=== PATIENT | female | born 1965 | race Caucasian/White ===

== ENCOUNTER → 2018-03-10 10:14 | Outpatient (CLI) | payer OTHER, MEDICAID, SELFPAY ==
--- NOTE | 2018-03-10 10:17 | DI.RAD.S_ITS ---
PROCEDURE: XR FINGER LT MIN 2V INDICATIONS: thumb arthritis TECHNIQUE: AP hand, 2 views of the first finger(s) acquired. COMPARISON: [facility], [place], XR FINGER RT MIN 2V, 03/10/2018, 10:03. [facility], [place], FINGER LT, 05/27/2016, 10:01. FINDINGS: Bones: No fractures or dislocations. No suspicious bony lesions. There is a mild degree of degenerative osteoarthritic change at the base of the first metacarpal Soft tissues: No suspicious soft tissue calcifications. 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 No significant degenerative change or prior trauma seen at the first distal and proximal phalanx. Dictated by: Yang Garcia M.D. on 03/10/2018 at 13:14 Approved by: Yang Garcia M.D. on 03/10/2018 at 13:15
--- NOTE | 2018-03-10 10:17 | DI.RAD.S_ITS ---
PROCEDURE: XR FINGER RT MIN 2V INDICATIONS: thumb arthritis TECHNIQUE: AP hand, 2 views of the first finger(s) acquired. COMPARISON: [facility], [place], FINGER LT, 05/27/2016, 10:01. FINDINGS: Bones: No fractures or dislocations. No suspicious bony lesions. Soft tissues: No suspicious soft tissue calcifications. IMPRESSION: Mild degenerative osteoarthritic change at the base of the first metacarpal, no trauma found. Dictated by: Yang Garcia M.D. on 03/10/2018 at 13:15 Approved by: Yang Garcia M.D. on 03/10/2018 at 13:16
== END ==
PROVIDERS: Family Provider Physician Assistant; PCP Physician Assistant; Visit Provider Physician Assistant
DX: M19.042 Primary osteoarthritis, left hand (principal)
CPT/HCPCS: 73140

== ENCOUNTER → 2019-05-01 09:22 | Outpatient (CLI) | payer OTHER, MEDICAID, SELFPAY ==
--- NOTE | 2019-05-01 09:27 | DI.RAD.S_ITS ---
PROCEDURE: XR HIP W PEL IF DONE LT 2V INDICATIONS: L hip pain x 3 months. Hx of ovarian borderline ca L ovary TECHNIQUE: 2 views of the hip were acquired. COMPARISON: None. FINDINGS: Bones: No fractures or dislocations. No suspicious bony lesions. The visualized pelvic ring appears intact. Minimal degenerative change. Soft tissues: No suspicious soft tissue calcifications or masses. IMPRESSION: Minimal degenerative change. If clinical concern with pain persist, additional imaging with CT or MRI is recommended. Dictated by: Sheela Guzmán M.D. on 05/01/2019 at 10:03 Approved by: Sheela Guzmán M.D. on 05/01/2019 at 10:04
== END ==
PROVIDERS: PCP Physician Assistant; Visit Provider Physician Assistant
DX: N39.0 Urinary tract infection, site not specified (principal); R35.0 Frequency of micturition; R39.15 Urgency of urination; M25.552 Pain in left hip
CPT/HCPCS: 73502; 87077; 87086; 87186

== ENCOUNTER → 2019-05-02 08:38 | Outpatient (CLI) | payer OTHER, MEDICAID, SELFPAY ==
[2019-05-02 09:19] LABS: Alanine Aminotransferase 16 IU/L (9-52); Albumin 3.5 g/dL (3.5-5.0); Albumin Globulin Ratio 1.3 (1.0-2.8); Alkaline Phosphatase 57 U/L (38-126); Aspartate Aminotransferase 21 IU/L (14-36); BUN Creatinine Ratio 17.8 (6-22); Bilirubin Total 0.3 mg/dL (0.2-1.3); Blood Urea Nitrogen 16 mg/dL (7-17); Calcium 8.4 mg/dL (8.4-10.2); Carbon Dioxide 29 mmol/L (22-32); Chloride 105 mmol/L (98-107); Cholesterol 126 mg/dL (140-199); Estimated Glomerular Filt Rate > 60.0 mL/min (>60); Globulin 2.6 g/dL (1.7-4.1); Glucose 122 mg/dL (70-100); HDL Cholesterol 55 mg/dL (40-60); HEMOLYSIS < 15 (0-50); LDL Cholesterol Calculated 53 mg/dL (<100); Potassium 3.8 mmol/L (3.4-5.1); Sodium 140 mmol/L (137-145); Total Protein 6.1 g/dL (6.3-8.2); Triglycerides 89 mg/dL (35-150)
== END ==
PROVIDERS: PCP Physician Assistant; Visit Provider Physician Assistant
DX: N39.0 Urinary tract infection, site not specified (principal); Z13.1 Encounter for screening for diabetes mellitus; Z13.220 Encounter for screening for lipoid disorders; Z13.6 Encounter for screening for cardiovascular disorders
CPT/HCPCS: 36415; 80053; 80061

== ENCOUNTER 2019-07-06 08:45 | Emergency (ER) | payer OTHER, MEDICAID, SELFPAY ==
[2019-07-06 09:27] VITALS: BP 128/91; PULSE 78; RESP 20; TEMP 36.7; O2SAT 100
--- NOTE | 2019-07-06 10:39 | PC.NURSE ---
Had I&D in group home. Here for evaluation of abscess
[2019-07-06] MEDS: KETOROLAC 60 MG/2 ML VIAL IM (12:00)
--- NOTE | 2019-07-06 12:06 | ED_ITS ---
HPI - Skin/Abscess/Foreign Bdy <BRIT Harrison - Last Filed: 07/06/19 15:39> General Chief complaint: Skin/Abscess/Foreign Body Stated complaint: Sore on neck Time Seen by Provider: 07/06/19 11:07 Source: patient and family Mode of arrival: Ambulatory Limitations: no limitations History of Present Illness HPI narrative: The patient is a 53-year-old female current smoker who presents for an evaluation of an abscess. She states that she has had an abscess on the back of her neck, on the left side. She had a I and D in halfway. She was started on an antibiotic, she was initially unsure what it was however she called the halfway and found out she was placed on Bactrim. She states she has taken 2 doses of Bactrim. She denies any fevers nausea vomiting or diarrhea. She states she wanted somebody else to take a look at it given that she had it drained in halfway. 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 She states she has been using Tylenol and putting warm packs on it. Related Data Previous Rx's Medication Instructions Recorded cephalexin 500 mg PO QID #40 cap 07/06/19 Allergies Allergy/AdvReac Type Severity Reaction Status Date / Time No Known Allergies Allergy Uncoded 05/01/19 08:44 Review of Systems <BRIT Harrison - Last Filed: 07/06/19 15:39> Review of Systems Narrative: GENERAL: Denies chills, fatigue, malaise, fever, sweats. HEENT: Denies sinus pain, ear pain, sore throat, difficulty swallowing, dizziness. RESPIRATORY: Denies dyspnea, cough, wheezing, hemoptysis, sputum. CARDIOVASCULAR: Denies chest pain, palpitations, orthopnea, edema, GASTROINTESTINAL: Denies nausea, vomiting, abdominal pain, diarrhea, constipation, melena. : Denies dysuria, frequency, incontinence, hematuria, urinary retention. MUSCULOSKELETAL: denies weakness, joint pain, or bony pain SKIN: See HPI NEUROLOGIC: Denies weakness, headache, numbness, change in speech, confusion, seizures, incoordination. PSYCHIATRIC: No concerning psychosocial issues. 12 point review of systems is negative except for those stated above PFSH <BRIT Harrison - Last Filed: 07/06/19 15:39> Medical History Mucinous cystadenoma (Acute ~10/2017) Surgical History Hx of appendectomy (Acute 1979) Status post hysterectomy with oophorectomy (09/13/17) Status post ovarian cystectomy (09/13/17) Social History Smoking Status: Current some day smoker Tobacco: How many years used: 40 second hand exposure: No alcohol intake: current (mixed drink probably twice a week.) substance use type: marijuana Social History Smoking Status: Current some day smoker Tobacco: How many years used: 40 second hand exposure: No alcohol intake: current (mixed drink probably twice a week.) substance use type: marijuana Exam <BRIT Harrison - Last Filed: 07/06/19 15:39> Narrative Exam Narrative: GENERAL: Thin female in no acute distress HEAD: Atraumatic. Normocephalic. No temporal or scalp tenderness. EYES: Pupils equal round and reactive. Extraocular motions intact. No scleral icterus. No injection or drainage. ENT: Nose without bleeding, purulent drainage or septal hematoma. Throat without erythema, tonsillar hypertrophy or exudate. Uvula midline. Airway patent. NECK: Trachea midline. No JVD or lymphadenopathy. Supple, nontender, no meningeal signs. CARDIOVASCULAR: Regular rate and rhythm without murmurs, gallops, or rubs. RESPIRATORY: Clear to auscultation. Breath sounds equal bilaterally. No wheezes, rales, or rhonchi. No cough. No increased respiratory effort. No accessory muscle use. GASTROINTESTINAL: Abdomen soft, non-tender, nondistended. No hepato- splenomegaly, or palpable masses. No guarding. Active bowel sounds all 4 quadrants. EXTREMITIES: No clubbing, cyanosis, or edema. No joint tenderness, effusion, or edema noted. BACK: Nontender without deformity or crepitance. No flank tenderness. NEURO: AOx3. SKIN: Recently I &Dd abscess noted on left side of posterior neck. 2 cm surrounding erythema. Serosanguineous drainage noted. Culture obtained. No palpable fluctuance at this point time. Initial Vital Signs Initial Vital Signs: Vital Signs Temperature 98.0 F 07/06/19 09:27 Pulse Rate 78 07/06/19 09:27 Respiratory Rate 20 07/06/19 09:27 Blood Pressure 128/91 H 07/06/19 09:27 Pulse Oximetry 100 07/06/19 09:27 <Marissa Hill MD - Last Filed: 07/06/19 19:42> Initial Vital Signs Initial Vital Signs: Vital Signs Temperature 98.0 F 07/06/19 09:27 Pulse Rate 78 07/06/19 09:27 Respiratory Rate 20 07/06/19 09:27 Blood Pressure 128/91 H 07/06/19 09:27 Pulse Oximetry 100 07/06/19 09:27 Course <BRIT Harrison - Last Filed: 07/06/19 15:39> Orders Ordered: ED Orders 07/06/19 11:50 Wound Culture and Gram Stain Stat Discontinued Medications Ketorolac Tromethamine (Toradol) 60 mg IM NOW ONE Stop: 07/06/19 11:22 Last Admin: 07/06/19 12:00 Dose: 60 mg Documented by: ELVIE Vital Signs Vital signs: Vital Signs - 8 hr 07/06/19 12:28 Pulse Rate 72 Respiratory Rate 20 Blood Pressure 140/93 H Pulse Oximetry 98 <Marissa Hill MD - Last Filed: 07/06/19 19:42> Orders Ordered: ED Orders 07/06/19 11:50 Wound Culture and Gram Stain Stat Discontinued Medications Ketorolac Tromethamine (Toradol) 60 mg IM NOW ONE Stop: 07/06/19 11:22 Last Admin: 07/06/19 12:00 Dose: 60 mg Documented by: JPOMAYRA Vital Signs Vital signs: Vital Signs - 8 hr 07/06/19 12:28 Pulse Rate 72 Respiratory Rate 20 Blood Pressure 140/93 H Pulse Oximetry 98 MDM - Skin/Abscess/Foreign Bdy <BRIT Harrison - Last Filed: 07/06/19 15:39> MDM Narrative Medical decision making narrative: The patient is a 53-year-old female who presents for an evaluation of an abscess. She denies any systemic symptoms and is afebrile in the emergency department. She is nontoxic and well-appearing. She has no palpable fluctuance on exam. I believe Bactrim is an appropriate choice of antibiotic for her, though I will add Keflex in order to expand coverage. I discussed at length monitoring for signs and symptoms of systemic infection including fever, vomiting, diarrhea. Encourage PCP follow-up for recheck in a few days. Encouraged warm packs. Wound cultures pending at this time. Patient states understanding and has no questions or concerns upon discharge. Discharge Plan Departure Patient Disposition: Home Clinical Impression: Abscess of skin or subcutaneous tissue Qualifiers: Site of cutaneous abscess: neck Qualified Code(s): L02.11 - Cutaneous abscess of neck Discharge Date/Time: 07/06/19 12:29 Instructions: DI for Incision and Drainage of a Skin Abscess, DI for Skin Abscess Activity Restrictions/Additional Instructions: Thank you for trusting us with your care today. I have added a 2nd antibiotic to expand your coverage. Please take both antibiotics. Please monitor for signs of systemic infection such as fever, vomiting, diarrhea. Please be evaluated if these occur. I suggest continued [id number] medications as needed and able. Please follow up with primary care provider in a few days. Prescriptions: New cephalexin 500 mg capsule 500 mg PO QID Qty: 40 RF: 0 Referrals: Danitza Galan PA-C [Primary Care Provider] -
[2019-07-06 12:28] VITALS: BP 140/93; PULSE 72; RESP 20; O2SAT 98
== END 2019-07-06 12:29 | disposition home or self-care (01) ==
PROVIDERS: Emergency Provider Nurse Practitioner Family; PCP Physician Assistant
DX: L02.11 Cutaneous abscess of neck (principal)
CPT/HCPCS: 87070; 87077; 87147; 87186; 87205; 96372; 99282; 99283; J1885

== ENCOUNTER 2019-07-24 06:37 | Day surgery (SDC) | payer OTHER, MEDICAID, SELFPAY ==
[2019-07-24] VITALS (8 sets, daily range): BP systolic 138–170; BP diastolic 80–95; PULSE 54–79; RESP 12–16; TEMP 35.9–36.3; O2SAT 97–100; BMI 23.8
[2019-07-24] MEDS: SODIUM CHLORIDE 0.9% 1,000 ML 200 ML IV (07:31)
--- NOTE | 2019-07-24 07:43 | PM.HP.1 ---
History of Present Illness History of Present Illness Date Patient Seen: 07/24/19 Time Patient Seen: 07:43 Chief complaint: [address] SCREENING COLONOSCOPY Narrative: Patient presents for colorectal screening. They have never had any previous examination for such. On further history denies any recent gastrointestinal symptoms. No nausea, vomiting, abdominal pain, loss of appetite, unexplained weight loss, change in bowel habits, diarrhea, constipation, melena, hematochezia, or bright red blood per rectum. Patient History Medical History MRSA (methicillin resistant Staphylococcus aureus) (Acute) Mucinous cystadenoma (Acute ~10/2017) Surgical History Hx of appendectomy (Acute 1979) Status post hysterectomy with oophorectomy (09/13/17) Status post ovarian cystectomy (09/13/17) Social History (Reviewed 07/06/19 @ 12:07 by Debbie Mathews [facility]) Smoking Status: Current some day smoker Tobacco: How many years used: 40 second hand exposure: No alcohol intake: current (mixed drink probably twice a week.) substance use type: marijuana Family & Social History Tobacco & Substance use: Smoking Status Current some day smoker alcohol intake current alcohol intake frequency 3 or more drinks per day Substance Use Type former substance user,marijuana Meds Home Medications and Allergies Home Medications Medication Instructions Recorded Confirmed Type cephalexin 500 mg PO QID #40 cap 07/06/19 07/24/19 Rx Allergies Allergy/AdvReac Type Severity Reaction Status Date / Time No Known Drug Allergies Allergy Verified 07/24/19 07:24 Review of Systems Review of Systems ROS Unobtainable: All systems reviewed & are unremarkable except as noted in HPI and below Exam Vital Signs (past 8 hours): - 07/24/19 07:25 Temperature 96.7 F L Pulse Rate 67 Respiratory Rate 16 Blood Pressure 170/95 H Pulse Oximetry 97 Oxygen Delivery Method Room Air Narrative Exam Narrative: General-no acute distress, well nourished HEENT-moist mucous membranes, no scleral icterus Neck-supple, no lymphadenopathy Chest- non labored respirations, clear to auscultation bilaterally Cardiac-regular rate no peripheral edema Abdomen-soft, nontender, non distended Extremities-warm, well perfused Neurological-alert and oriented, no focal deficits Assessment & Plan Assessment and plan (1) Screening for colon cancer: Current visit: Yes Status: Acute Assessment & Plan narrative: Patient is requiring colorectal screening. Colonoscopy is recommended. Technical details were discussed. Risks, benefits, alternatives explained. Risks including but not limited to sedation, aspiration, bleeding, pain, missed lesion, incomplete examination, need for further radiographic studies, colonic perforation, need for major abdominal surgery, and all attendant risks major surgery were discussed at length. All questions were answered to their satisfaction, and they voiced understanding.
--- NOTE | 2019-07-24 08:31 | PM.OP.ENDO ---
Operative Date/Time/Diagnoses Date of procedure: 07/24/19 Time of procedure: 08:31 Pre-op diagnosis: screening colonoscopy Post-op diagnosis: same Procedure & Clinicians Study performed: colonoscopy Same procedure as scheduled: Yes Indications: 53 y.o female with no prior colonoscopy presents for screening. Surgeon: Clemente March Procedure Notes SCOAP/Timeout: performed Procedure in detail: Patient placed in left lateral decubitus position. Time out was performed. Procedural sedation was administered for 9 mg Versed, 250 mcg Fentanly total. A rectal exam demonstrated no external hemorrhoids no internal masses. Colonoscopy scope was placed into the rectum and advanced through the colon to the cecum. The ileocecal valve was identified. Scope was then carefully withdrawn examining colon during the withdrawal in all directions. A polyp at 55 cm from the anal verge was identified, less than 1 cm in diameter and benign appearance was identified and excised with electrocautery. The site was observed to be hemostatic. Multiple attempts were made to retrieve the polyp but we were unable to do so. The remainder of colonoscopy was normal, there were no further masses polyps or diverticulosis. Scope was retroflexed within the rectum demonstrated grade 1 internal hemorrhoids. The rectum was desufflated and the scope removed. Patient tolerated procedure well. Scope withdrawal time: 9 Sedation minutes: 33 Findings: polyp (50 cm) Specimen(s): none sent Impression: adenomatous polyp Post-procedure Recommendations: Colonscopy in 5 years Disposition: same day surgery
[2019-07-24] MEDS: MIDAZOLAM 5 MG/5 ML VIAL IV (08:34)
[2019-07-24] MEDS: fentaNYL 250 MCG/5 ML INJ IV (08:35)
== END 2019-07-24 08:34 | disposition home or self-care (01) ==
PROVIDERS: PCP Physician Assistant; Visit Provider Surgery
PROC: 0DJD8ZZ Inspection of Lower Intestinal Tract, Via Natural or Artificial Opening Endoscopic (ICD-10-PCS; CPT 45378; principal; 2019-07-24 08:30)
DX: Z12.11 Encounter for screening for malignant neoplasm of colon (principal); F17.210 Nicotine dependence, cigarettes, uncomplicated; K64.0 First degree hemorrhoids
CPT/HCPCS: 45380; 99152; 99153; J2250; J3010

== ENCOUNTER → 2020-06-01 13:45 | Outpatient (CLI) | payer OTHER, SELFPAY ==
[2020-06-01 18:28] LABS: Urine N gonorrhoeae DETECTED
[2020-06-01 18:30] LABS: Urine Chlamydia NOT DETECTED
[2020-06-02 11:36] LABS: RPR Screen Non Reactive (Non Reactive)
[2020-06-03 15:18] LABS: Hepatitis B Surface Antigen NEGATIVE s/c (NEGATIVE)
[2020-06-03 15:46] LABS: HIV 1 & 2 Ab/Ag 4th Gen Combo NEGATIVE (NEGATIVE); Hep C Virus Ab w/Reflex Quant NEGATIVE s/c (NEGATIVE)
== END ==
PROVIDERS: PCP Physician Assistant; Referring Provider Physician Assistant; Visit Provider Physician Assistant
DX: Z11.3 Encounter for screening for infections with a predominantly sexual mode of transmission (principal)
CPT/HCPCS: 36415; 86592; 86803; 87210; 87340; 87389; 87491; 87591

== ENCOUNTER 2020-06-13 15:25 | Observation (INO) | payer OTHER, MEDICAID, SELFPAY ==
[2020-06-13] VITALS (20 sets, daily range): BP systolic 117–148; BP diastolic 73–98; PULSE 75–149; RESP 11–32; TEMP 36.3–36.6; O2SAT 97–100; BMI 23.6
--- NOTE | 2020-06-13 15:36 | ED_ITS ---
HPI - Arrhythmia/Palpitations General Chief Complaint: Arrhythmia/Palpitations Stated Complaint: abnormal EKG Time Seen by Provider: 06/13/20 15:32 Source: patient Mode of arrival: Wheelchair Limitations: no limitations History of Present Illness HPI narrative: Patient is a 54-year-old female who presents with new onset tachycardia. She was establishing care with a new primary care provider when they saw that her heart rate was in the 140s. She is completely asymptomatic she has no idea that a is going so fast. She has no heart palpitations chest pain shortness of breath. Her mother had a heart attack last week and she decided it was time that she see a provider. She was quickly sent to the ED for evaluation. She denies any fluttering or palpitations in her chest. She is noted to be in AFib with RVR on the monitor Related Data Home Medications Medication Instructions Recorded Confirmed No Known Home Medications 06/13/20 06/13/20 Allergies Allergy/AdvReac Type Severity Reaction Status Date / Time No Known Drug Allergies Allergy Verified 06/13/20 15:32 Review of Systems Review of Systems Narrative: GENERAL: Denies chills, fatigue, malaise, fever, sweats, travel HEENT: Denies sinus pain, ear pain, sore throat, difficulty swallowing, neck pain RESPIRATORY: Denies dyspnea, cough, wheezing, hemoptysis, sputum. CARDIOVASCULAR: Denies chest pain, palpitations, orthopnea, edema GASTROINTESTINAL: Denies nausea, vomiting, abdominal pain, diarrhea, constipation, melena. : Denies dysuria, frequency, incontinence, hematuria, urinary retention, flank pain. MUSCULOSKELETAL: Denies weakness, joint pain, or bony pain SKIN: No rash, no erythema, no pruritus NEUROLOGIC: Denies weakness, dizziness, headache, numbness, change in speech, confusion PSYCHIATRIC: No concerning psychosocial issues. 12 point review of systems is negative except for those stated above and HPI Patient History Medical History MRSA (methicillin resistant Staphylococcus aureus) (Acute) Mucinous cystadenoma (Acute ~10/2017) Surgical History Hx of appendectomy (Acute 1979) Status post hysterectomy with oophorectomy (09/13/17) Status post ovarian cystectomy (09/13/17) Social History household members: friend(s) Smoking Status: Former smoker Tobacco: How many years used: 40 second hand exposure: No alcohol intake: current substance use type: marijuana Smoking Status: Current some day smoker alcohol intake frequency: 3 or more drinks per day Substance Use Type: former substance user and marijuana Exam Initial Vital Signs Initial Vital Signs: Vital Signs Temperature 97.7 F 06/13/20 15:32 Pulse Rate 145 H 06/13/20 15:32 Respiratory Rate 25 H 06/13/20 15:32 Blood Pressure 148/90 H 06/13/20 15:32 Pulse Oximetry 98 06/13/20 15:32 GENERAL: Well-appearing, well-nourished and in no acute distress. HEENT: Head atraumatic,EOMI, pupils reactive, face symmetric, moist mucous membranes CARDIOVASCULAR: Irregular tachycardic RESPIRATORY: Breath sounds equal bilaterally, no wheezes rales or rhonchi. ABDOMEN: Soft, nontender. Normoactive bowel sounds all 4 quadrants. No guarding or rebound. : No CVA tenderness EXTREMITIES: Normal range of motion, no clubbing or edema. Neurovascularly intact NEUROLOGICAL: Alert and oriented x4.Normal gait and speech. SKIN: Warm, dry, no laceration, no petechiae, no rashes or lesions. Course Orders Ordered: ED Orders 06/13/20 15:27 EKG-12 Lead Routine 06/13/20 15:43 XR chest 1V Stat 06/13/20 15:48 Complete Blood Count AUTO DIFF Stat Comprehensive Metabolic Panel Stat Magnesium Stat NT-proBNP (BNP-Adult 18+) Stat Partial Thromboplastin Time Stat Prothrombin Time INR Stat Thyroid Stimulating Hormone Stat Troponin & CK Cardiac Panel Stat 06/13/20 16:08 EKG-12 Lead Routine Sodium Chloride (Normal Saline 0.9%) 1,000 mls @ 150 mls/hr IV CONT KYLE Last Infusion: 06/13/20 17:13 Dose: 0 mls/hr Documented by: Admin: 06/13/20 15:56 Dose: 150 mls/hr Documented by: LAQUITA DILTIAZEM (Diltiazem 125 Mg/125 [id number]) 125 mg in 125 mls @ 5 mls/hr IV TITRATE KYLE; Protocol Last Titration: 06/13/20 18:39 Dose: 10 mg/hr, 10 mls/hr Documented by: Admin: 06/13/20 16:59 Dose: 5 mg/hr, 5 mls/hr Documented by: LAQUITA Discontinued Medications Adenosine (Adenocard) 6 mg IV NOW ONE Stop: 06/13/20 15:44 Last Admin: 06/13/20 16:56 Dose: Not Given Documented by: LAQUITA Diltiazem HCl (Cardizem) 10 mg IV NOW ONE Stop: 06/13/20 15:45 Last Admin: 06/13/20 15:52 Dose: 10 mg Documented by: LAQUITA Vital Signs Vital signs: Vital Signs - 8 hr 06/13/20 15:32 06/13/20 15:41 06/13/20 15:52 Temperature 97.7 F Pulse Rate 145 H 149 H 148 H Respiratory Rate 25 H 32 H Blood Pressure 148/90 H 148/90 H Pulse Oximetry 98 100 06/13/20 16:00 06/13/20 16:17 06/13/20 16:30 Temperature Pulse Rate 106 H 106 H 110 H Respiratory Rate 13 17 16 Blood Pressure 117/73 129/91 H Pulse Oximetry 97 98 98 06/13/20 16:45 06/13/20 17:00 06/13/20 17:07 Temperature Pulse Rate 119 H 127 H 131 H Respiratory Rate 13 11 L 14 Blood Pressure 124/95 H 131/98 H 148/97 H Pulse Oximetry 98 100 99 06/13/20 17:12 06/13/20 17:17 Temperature Pulse Rate 126 H 130 H Respiratory Rate 16 13 Blood Pressure 138/90 128/87 Pulse Oximetry 99 99 MDM - Arrhythmia/Palpitations Lab Data Attestation: I reviewed the patient's lab results. Result diagrams: 06/13/20 15:48 06/13/20 15:48 Labs: Lab Results 06/13/20 06/13/20 06/13/20 Range/Units 15:48 15:48 15:48 WBC 7.1 (4.5-11.0) X10^3/uL RBC 5.53 H (4.0-5.2) X10^6/uL Hgb 16.8 H (12.0-16.0) g/dL Hct 49.7 H (36-46) % MCV 89.8 (80-100) fL MCH 30.3 (26-34) PG MCHC 33.8 (30-36) % RDW 13.6 (11.6-14.8) % Plt Count 298 (150-400) X10^3/uL Neut % (Auto) 69.0 (50-75) % Lymph % (Auto) 20.5 L (25-40) % [place] % (Auto) 8.4 (3-14) % Eos % (Auto) 1.7 L (2-4) % Baso % (Auto) 0.4 (0-2) % Neut # (Auto) 4900 (4708-6340) /uL Lymph # (Auto) 1400 (6022-1441) /uL [place]oughton # (Auto) 600 (0-900) /uL Eos # (Auto) 100 (0-450) /uL Baso # (Auto) 0 (0-100) /uL PT 10.8 (10.1-12.7) SECONDS INR 0.9 (0.9-1.3) APTT 39 H (26.4-36.2) SECONDS Sodium 139 (137-145) mmol/L Potassium 3.5 (3.4-5.1) mmol/L Chloride 101 (98-107) mmol/L Carbon Dioxide 31 (22-32) mmol/L BUN 18 H (7-17) mg/dL Creatinine 0.78 (0.52-1.04) mg/dL Estimated GFR > 60.0 (>60) mL/min BUN/Creatinine Ratio 23.1 H (6-22) Glucose 104 H (70-100) mg/dL Calcium 9.7 (8.4-10.2) mg/dL Magnesium 2.4 H (1.6-2.3) mg/dL Total Bilirubin 0.8 (0.2-1.3) mg/dL AST 35 (14-36) IU/L ALT 28 (<35) IU/L Alkaline Phosphatase 79 (38-126) U/L Total Creatine Kinase 173 H (30-135) U/L CK-MB (CK-2) 2.79 H (<2.37) ng/mL CK-MB (CK-2) Rel Index 1.6 (1.5-5.0) % Troponin I < 0.012 (0.01-0.034) ng/mL NT-Pro-B Natriuret Pep (<125) pg/mL Total Protein 8.2 (6.3-8.2) g/dL Albumin 4.9 (3.5-5.0) g/dL Globulin 3.3 (1.7-4.1) g/dL Albumin/Globulin Ratio 1.5 (1.0-2.8) TSH (0.47-4.68) uIU/mL COVID-19 PCR (Negative) 06/13/20 06/13/20 06/13/20 Range/Units 15:48 15:48 17:25 WBC (4.5-11.0) X10^3/uL RBC (4.0-5.2) X10^6/uL Hgb (12.0-16.0) g/dL Hct (36-46) % MCV (80-100) fL MCH (26-34) PG MCHC (30-36) % RDW (11.6-14.8) % Plt Count (150-400) X10^3/uL Neut % (Auto) (50-75) % Lymph % (Auto) (25-40) % Houghton % (Auto) (3-14) % Eos % (Auto) (2-4) % Baso % (Auto) (0-2) % Neut # (Auto) (4037-1901) /uL Lymph # (Auto) (9207-6078) /uL [place]oughton # (Auto) (0-900) /uL Eos # (Auto) (0-450) /uL Baso # (Auto) (0-100) /uL PT (10.1-12.7) SECONDS INR (0.9-1.3) APTT (26.4-36.2) SECONDS Sodium (137-145) mmol/L Potassium (3.4-5.1) mmol/L Chloride (98-107) mmol/L Carbon Dioxide (22-32) mmol/L BUN (7-17) mg/dL Creatinine (0.52-1.04) mg/dL Estimated GFR (>60) mL/min BUN/Creatinine Ratio (6-22) Glucose (70-100) mg/dL Calcium (8.4-10.2) mg/dL Magnesium (1.6-2.3) mg/dL Total Bilirubin (0.2-1.3) mg/dL AST (14-36) IU/L ALT (<35) IU/L Alkaline Phosphatase (38-126) U/L Total Creatine Kinase (30-135) U/L CK-MB (CK-2) (<2.37) ng/mL CK-MB (CK-2) Rel Index (1.5-5.0) % Troponin I (0.01-0.034) ng/mL NT-Pro-B Natriuret Pep 166 H (<125) pg/mL Total Protein (6.3-8.2) g/dL Albumin (3.5-5.0) g/dL Globulin (1.7-4.1) g/dL Albumin/Globulin Ratio (1.0-2.8) TSH 0.989 (0.47-4.68) uIU/mL COVID-19 PCR Negative (Negative) ECG Data Attestation: I personally reviewed and interpreted this ECG as follows: Prior ECG tracings: not available for review Interpretation: Atrial fibrillation rate [address] changes EKG 2. Atrial fibrillation rate [address] changes MDM Narrative Medical decision making narrative: Patient is completely asymptomatic at a candidate for cardioversion it is unclear when her symptoms started. She resp onded well to 10 mg of Cardizem heart rate now varies from 97-120 but she remained in atrial fibrillation. Patient will be admitted for new onset atrial fibrillation needing rate control and further cardiac evaluation. Dr. paredes accepts Discharge Plan Departure Clinical Impression: Atrial fibrillation with RVR Admit Date/Time: 06/13/20 17:27 Admit Provider: Selma Paredes
--- NOTE | 2020-06-13 15:43 | DI.RAD.S_ITS ---
PROCEDURE: XR CHEST 1V INDICATIONS: chest palpiations TECHNIQUE: One view of the chest was acquired. COMPARISON: [facility], , CHEST 1 VIEW, 09/17/2017, 9:32. FINDINGS: Surgical changes and devices: None. Lungs and pleura: Lungs are clear. No pleural effusions or pneumothorax. Mediastinum: Mediastinal contours appear normal. Heart size is normal. Bones and chest wall: No suspicious bony lesions. Overlying soft tissues appear unremarkable. IMPRESSION: Normal for age, source of current palpitation symptoms is not seen. Dictated by: Yang Garcia M.D. on 06/13/2020 at 16:51 Approved by: Yang Garcia M.D. on 06/13/2020 at 16:52
[2020-06-13] MEDS: dilTIAZem 5 MG/ML SDV 10 MG IV (15:52)
[2020-06-13 15:56] LABS: Add Manual Diff / Slide Review NO; Basophils Absolute Auto 0 /uL (0-100); Basophils Percent Auto 0.4 % (0-2); Eosinophils Absolute Auto 100 /uL (0-450); Eosinophils Percent Auto 1.7 % (2-4); Hematocrit 49.7 % (36-46); Hemoglobin 16.8 g/dL (12.0-16.0); Lymphocytes Absolute Auto 1400 /uL (1100-4500); Lymphocytes Percent Auto 20.5 % (25-40); Mean Corpuscular HGB Conc 33.8 % (30-36); Mean Corpuscular Hemoglobin 30.3 PG (26-34); Mean Corpuscular Volume 89.8 fL (80-100); Monocytes Absolute Auto 600 /uL (0-900); Monocytes Percent Auto 8.4 % (3-14); Neutrophils Absolute Auto 4900 /uL (1500-7000); Platelet Count 298 X10^3/uL (150-400); Red Blood Cell Count 5.53 X10^6/uL (4.0-5.2); Red Cell Distribution Width 13.6 % (11.6-14.8); White Blood Cell Count 7.1 X10^3/uL (4.5-11.0)
[2020-06-13] MEDS: SODIUM CHLORIDE 0.9% 1,000 ML 150 ML IV (15:56)
[2020-06-13 16:01] LABS: INR 0.9 (0.9-1.3); Prothrombin Time 10.8 SECONDS (10.1-12.7)
[2020-06-13 16:04] LABS: PTT Partial Thromboplastin Tim 39 SECONDS (26.4-36.2)
[2020-06-13 16:05] LABS: Alanine Aminotransferase 28 IU/L (<35); Albumin 4.9 g/dL (3.5-5.0); Albumin Globulin Ratio 1.5 (1.0-2.8); Alkaline Phosphatase 79 U/L (38-126); Aspartate Aminotransferase 35 IU/L (14-36); BUN Creatinine Ratio 23.1 (6-22); Bilirubin Total 0.8 mg/dL (0.2-1.3); Blood Urea Nitrogen 18 mg/dL (7-17); Calcium 9.7 mg/dL (8.4-10.2); Carbon Dioxide 31 mmol/L (22-32); Chloride 101 mmol/L (98-107); Creatine Kinase 173 U/L (30-135); Estimated Glomerular Filt Rate > 60.0 mL/min (>60); Globulin 3.3 g/dL (1.7-4.1); Glucose 104 mg/dL (70-100); HEMOLYSIS < 15 (0-50); Magnesium 2.4 mg/dL (1.6-2.3); Potassium 3.5 mmol/L (3.4-5.1); Sodium 139 mmol/L (137-145); Total Protein 8.2 g/dL (6.3-8.2)
--- NOTE | 2020-06-13 16:07 | PC.NURSE ---
Reports headache since last evening. Denies chest pain. Was at MD office and sent to ER d/t EKG showing Afib RVR
[2020-06-13 16:17] LABS: Troponin I < 0.012 ng/mL (0.01-0.034)
[2020-06-13 16:20] LABS: CKMB % Relative Index 1.6 % (1.5-5.0); Creatine Kinase MB 2.79 ng/mL (<2.37)
[2020-06-13 16:36] LABS: NT-proBNP (BNP-Adult 18+) 166 pg/mL (<125); Thyroid Stimulating Hormone 0.989 uIU/mL (0.47-4.68)
[2020-06-13] MEDS: DILTIAZEM 125 MG/125 ML PIGGYBACK IV (16:59)
--- NOTE | 2020-06-13 17:08 | PC.NURSE ---
Dilt gtt started at 5ml/hr. Pt denies discomfort
--- NOTE | 2020-06-13 18:10 | PC.NURSE ---
6427- Patient arrived to room 228. Diltiazem gtt infusing per order. Patient alert and oriented and in no distress. Oriented to the room and placed on Isolation pending Covid result. Patient in AFib/RVR. BP is stable. Will monitior.
[2020-06-13 18:43] LABS: COVID19 -Nasal RAPID Negative (Negative)
--- NOTE | 2020-06-13 20:18 | PM.HP.1 ---
History of Present Illness History of Present Illness Date Patient Seen: 06/13/20 Time Patient Seen: 20:18 Chief complaint: abnormal EKG Narrative: Marylou Bowles is a 54-year-old female normally healthy was going into her PCP to establish care and when they took her vitals she was found to have an elevated heart rate and was immediately referred to the emergency department. She has been told in the past that she has had an elevated heart rate and that she has a murmur. States that her heart rate has been noted to range from 126 to of 135. Her only new symptoms is that she is quite fatigued in sometimes is noted to fall asleep while talking to others. 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 She denies fevers sweats or chills, chest pain, shortness of breath, nausea vomiting, dysuria, diarrhea or constipation. In the emergency department she was given IV diltiazem 10 mg, and then started on a diltiazem drip. Patient is afebrile, blood pressure 124/83, her heart rate is now controlled at 75 per minute, but still irregular, oxygen saturation 99% on room air, she weighs 62.5 kg with a BMI of 23.6. WBC 7.1, RBC 5.53, hemoglobin 16.8, hematocrit 49.7, platelet count 298, INR is 0.9, sodium 139, potassium 3.5, chloride 101, bicarb 31, BUN 18, creatinine 0.78, GFR is greater than 60, glucose 104, calcium 9.7, magnesium 2 4, liver enzymes are within normal limits, creatinine kinase is a elevated at 173, CK-MB is 2.79, troponin x2 are negative, proBNP is 166, TSH is 0.989, and COVID-19 is negative. EKGs done in 2017 and today both indicate an incomplete right bundle branch block both indicated a possible inferior MA likely old. Patient History Medical History MRSA (methicillin resistant Staphylococcus aureus) (Acute) Mucinous cystadenoma (Acute ~10/2017) Surgical History Hx of appendectomy (Acute 1979) Status post hysterectomy with oophorectomy (09/13/17) Status post ovarian cystectomy (09/13/17) Family & Social History Family History Mother Acute MA Grandfather Congestive heart failure Father Leukemia Social History: household members friend(s) Prior Living Arrangements House Safety & Behavioral: Feels Safe in Current Yes Environment Been Physically Hurt or No Threatened By a Person Suicidal Ideation Description None Suicide Plan Description No Plan Tobacco & Substance use: Tobacco type cigarettes Smoking Status Former smoker alcohol intake current alcohol intake frequency 3 or more drinks per day Substance Use Type marijuana,former substance user Meds Home Medications and Allergies Home Medications Medication Instructions Recorded Confirmed Type No Known Home Medications 06/13/20 06/13/20 History Allergies Allergy/AdvReac Type Severity Reaction Status Date / Time No Known Drug Allergies Allergy Verified 06/13/20 15:32 Review of Systems Review of Systems ROS: Yes All systems reviewed with the patient and are negative except as otherwise documented Exam Vital Signs (past 8 hours): - 06/13/20 15:32 06/13/20 15:41 06/13/20 15:52 Temperature 97.7 F Pulse Rate 145 H 149 H 148 H Respiratory Rate 25 H 32 H Blood Pressure 148/90 H 148/90 H Pulse Oximetry 98 100 06/13/20 16:00 06/13/20 16:17 06/13/20 16:30 Temperature Pulse Rate 106 H 106 H 110 H Respiratory Rate 13 17 16 Blood Pressure 117/73 129/91 H Pulse Oximetry 97 98 98 06/13/20 16:45 06/13/20 17:00 06/13/20 17:07 Temperature Pulse Rate 119 H 127 H 131 H Respiratory Rate 13 11 L 14 Blood Pressure 124/95 H 131/98 H 148/97 H Pulse Oximetry 98 100 99 06/13/20 17:12 06/13/20 17:17 06/13/20 17:35 Temperature 97.6 F Pulse Rate 126 H 130 H 128 H Respiratory Rate 16 13 17 Blood Pressure 138/90 128/87 135/98 H Pulse Oximetry 99 99 99 06/13/20 17:40 06/13/20 18:00 06/13/20 18:15 Temperature Pulse Rate 125 H 104 H 102 H Respiratory Rate 15 14 14 Blood Pressure 135/98 H 137/84 148/82 H Pulse Oximetry 100 99 99 06/13/20 18:30 06/13/20 18:45 06/13/20 19:00 Temperature Pulse Rate 121 H 117 H 103 H Respiratory Rate 13 13 14 Blood Pressure 134/74 127/85 124/76 Pulse Oximetry 99 99 99 Oxygen Delivery Method Room Air Oxygen Flow Rate 9 Narrative Exam Narrative: Gen: Alert, oriented, thin 54 y.o. female, NAD HEENT: normocephalic, atraumatic, conjunctiva clear, sclera non-icteric, oral mucosa pink and moist Neck: supple, full ROM, no JVD, trachea is midline Resp: Lungs CTA, non-labored breathing CV: skipped beats, very subtle systolic murmur Abd: soft, non-tender, normoactive BTs Skin: no lesions or rashes, dry and intact Neuro: Alert and oriented X 4 w/no focal deficits. Speech clear and coherent. Extremities: moves all 4 extremities, is ambulatory, negative Nito?s sign Psyche: normal mood and affect. Objective Labs Result Diagrams: 06/13/20 15:48 06/13/20 15:48 Labs: Laboratory Results - last 24 hr 06/13/20 06/13/20 06/13/20 15:48 15:48 15:48 WBC 7.1 RBC 5.53 H Hgb 16.8 H Hct 49.7 H MCV 89.8 MCH 30.3 MCHC 33.8 RDW 13.6 Plt Count 298 Neut % (Auto) 69.0 Lymph % (Auto) 20.5 L [place] % (Auto) 8.4 Eos % (Auto) 1.7 L Baso % (Auto) 0.4 Neut # (Auto) 4900 Lymph # (Auto) 1400 [place] # (Auto) 600 Eos # (Auto) 100 Baso # (Auto) 0 PT 10.8 INR 0.9 APTT 39 H Sodium 139 Potassium 3.5 Chloride 101 Carbon Dioxide 31 BUN 18 H Creatinine 0.78 Estimated GFR > 60.0 BUN/Creatinine Ratio 23.1 H Glucose 104 H Calcium 9.7 Magnesium 2.4 H Total Bilirubin 0.8 AST 35 ALT 28 Alkaline Phosphatase 79 Total Creatine Kinase 173 H CK-MB (CK-2) 2.79 H CK-MB (CK-2) Rel Index 1.6 Troponin I < 0.012 NT-Pro-B Natriuret Pep Total Protein 8.2 Albumin 4.9 Globulin 3.3 Albumin/Globulin Ratio 1.5 TSH COVID-19 PCR 06/13/20 06/13/20 06/13/20 15:48 15:48 17:25 WBC RBC Hgb Hct MCV MCH MCHC RDW Plt Count Neut % (Auto) Lymph % (Auto) [place] % (Auto) Eos % (Auto) Baso % (Auto) Neut # (Auto) Lymph # (Auto) [place] # (Auto) Eos # (Auto) Baso # (Auto) PT INR APTT Sodium Potassium Chloride Carbon Dioxide BUN Creatinine Estimated GFR BUN/Creatinine Ratio Glucose Calcium Magnesium Total Bilirubin AST ALT Alkaline Phosphatase Total Creatine Kinase CK-MB (CK-2) CK-MB (CK-2) Rel Index Troponin I NT-Pro-B Natriuret Pep 166 H Total Protein Albumin Globulin Albumin/Globulin Ratio TSH 0.989 COVID-19 PCR Negative Assessment & Plan Assessment & Plan narrative: Marylou Bowles is 54 years old with no related medical history will be placed in ICU/observation for further management and treatment of new onset atrial fibrillation New onset atrial fibrillation, present on admission -patient was given IV diltiazem 10 mg in the ED and started on a diltiazem drip -currently is rate controlled but she is still irregular, will over to oral metoprolol when she converts -lipid panel likely start on a statin -echocardiogram in the morning -troponins x2 have been negative -start anticoagulation with apixaban 5 mg p.o. b.i.d. Consults: none Patient is observation status as her stay is not likely to exceed 2 midnights. FEN: No extra fluids than the drip, low sodium diet, BMP and magnesium in the am. VTE prophylaxis: Apixaban 5 mg p.o. b.i.d. she started her 1st dose tonight Dispo: Probable discharge to home with referral to cardiology Code Status: Full code as discussed with patient COVID-19 COVID-19 status: Negative Result date/Date tested (Pos, Neg/Pending): 06/13/20 Scores CHADS-VASc Congestive heart failure: no Hypertension: no Age 75 years or older: no Diabetes mellitus: no Stroke, TIA, or TE: no Vascular disease: no Age 65 to 74 years: no Sex category (female): Female CHADS-VASc Score: 1
[2020-06-13] MEDS: APIXABAN 5 MG TABLET PO (21:56)
[2020-06-14] VITALS: BP 103/67; PULSE 75; RESP 13; O2SAT 98
--- NOTE | 2020-06-14 00:33 | PC.NURSE ---
0032- Patient converted to NSR. Patient sleeping. Diltiazem at 10mg/hr. VSS. Will monitor.
[2020-06-14 02:15] VITALS: BP 89/52; PULSE 65; RESP 14; O2SAT 97
[2020-06-14 04:57] VITALS: BP 110/65; PULSE 60; RESP 13; TEMP 36.6; O2SAT 98
[2020-06-14 05:14] LABS: Add Manual Diff / Slide Review NO; Basophils Absolute Auto 0 /uL (0-100); Basophils Percent Auto 0.6 % (0-2); Eosinophils Absolute Auto 200 /uL (0-450); Eosinophils Percent Auto 3.6 % (2-4); Hematocrit 41.5 % (36-46); Hemoglobin 13.8 g/dL (12.0-16.0); Lymphocytes Absolute Auto 2400 /uL (1100-4500); Lymphocytes Percent Auto 39.1 % (25-40); Mean Corpuscular HGB Conc 33.2 % (30-36); Mean Corpuscular Hemoglobin 29.7 PG (26-34); Mean Corpuscular Volume 89.5 fL (80-100); Monocytes Absolute Auto 600 /uL (0-900); Monocytes Percent Auto 9.1 % (3-14); Neutrophils Absolute Auto 2900 /uL (1500-7000); Neutrophils Percent Auto 47.6 % (50-75); Platelet Count 277 X10^3/uL (150-400); Red Blood Cell Count 4.64 X10^6/uL (4.0-5.2); Red Cell Distribution Width 13.3 % (11.6-14.8); White Blood Cell Count 6.2 X10^3/uL (4.5-11.0)
[2020-06-14 05:22] LABS: Alanine Aminotransferase 19 IU/L (<35); Albumin 3.5 g/dL (3.5-5.0); Albumin Globulin Ratio 1.5 (1.0-2.8); Alkaline Phosphatase 56 U/L (38-126); Aspartate Aminotransferase 24 IU/L (14-36); BUN Creatinine Ratio 23.4 (6-22); Bilirubin Total 0.8 mg/dL (0.2-1.3); Blood Urea Nitrogen 18 mg/dL (7-17); Calcium 8.5 mg/dL (8.4-10.2); Carbon Dioxide 27 mmol/L (22-32); Chloride 106 mmol/L (98-107); Estimated Glomerular Filt Rate > 60.0 mL/min (>60); Globulin 2.3 g/dL (1.7-4.1); Glucose 88 mg/dL (70-100); HEMOLYSIS < 15 (0-50); Magnesium 2.2 mg/dL (1.6-2.3); Potassium 3.6 mmol/L (3.4-5.1); Sodium 137 mmol/L (137-145); Total Protein 5.8 g/dL (6.3-8.2)
[2020-06-14 05:39] LABS: Cholesterol 133 mg/dL (140-199); HDL Cholesterol 73 mg/dL (40-60); LDL Cholesterol Calculated 48 mg/dL (<100); Triglycerides 61 mg/dL (35-150)
[2020-06-14] MEDS: dilTIAZem SR 60 MG PO (08:33)
[2020-06-14] MEDS: APIXABAN 5 MG TABLET PO (08:33)
--- NOTE | 2020-06-14 08:44 | PC.NURSE ---
Addendum entered by Stacia Begum R.N. 06/14/20 14:24: Echo results, Dr Paredes d/c patient willl follow up and establish with PCP this week. Original Note: 0900-Pt up having meal, awaiting echo results. Labs this AM were not fasting per Pt, snacks at bedside. Pt is resting quietly with no s/sx of dyspnea. Pt denies HR changes since converting about midnight last night. Dilt gtt infusing @ 5mls/hr at present. Plan to start PO control in AM. VSS, BP soft at start of shift, improved t/o shift. Call light in reach.
[2020-06-14 11:22] VITALS: BP 136/87; PULSE 61; RESP 12; TEMP 36.7; O2SAT 100
--- NOTE | 2020-06-14 11:29 | DI.ECHO.S_ITS ---
Echocardiogram Report + + :Name: GUERDA KAUR Study Date: 06/14/2020 Height: 64 in : :Hospital Exam Location: [facility] Weight: 138 lb : : Gender: Female BSA: 1.7 m2 : :: 1965 Age: 54 yrs BP: 136/87 mmHg: :Reason For Study: New onset atrial fibrillation : :Ordering Physician: Anabelle : :Hospitalist Performed By: Maryam Page : :Referring: LISA VIVEROS : + + Interpretation Summary Left ventricular systolic function is normal with an estimated ejection fraction of 60 to 65% without any focal wall motion abnormality. Diastolic function is likely normal with normal filling pressures. The right ventricle appears normal. Right ventricular systolic pressure is estimated at 35 mmHg based on a CVP estimate of 8 mmHg. There is mild left atrial enlargement and borderline right atrial enlargement. There is no significant valvular abnormality. The ascending aorta is mildly enlarged. The patient was in sinus rhythm at 55-65 bpm throughout the study. Procedure: A two-dimensional transthoracic echocardiogram with color flow and Doppler was performed. The study quality was technically good. There is no prior echocardiogram noted for this patient. The patient was in normal sinus rhythm during the exam. Left Ventricle: The left ventricle is normal in size, wall thickness, and systolic function without any focal wall motion abnormalities. The ejection fraction is estimated to be 60-65%. Diastolic parameters suggest probable normal left ventricular diastolic function and normal filling pressures. Right Ventricle: The right ventricle is normal in size and function. Atria: The left atrium is mildly dilated. The right atrium is borderline dilated. There is no Doppler evidence for an interatrial shunt. Mitral Valve: The mitral valve is normal in structure and function. There is trace mitral regurgitation. Aortic Valve: The aortic valve is trileaflet. The aortic valve opens well. No aortic regurgitation is present. Tricuspid Valve: The tricuspid valve is normal in structure and function. There is trace tricuspid regurgitation. The right ventricular systolic pressure is estimated to be at least 35 mmHg based on an estimated right atrial pressure of 8 mm Hg. Pulmonic Valve: The pulmonic valve is not well visualized. There is a trace or physiologic amount of pulmonic regurgitation. There is no significant valvular heart disease. Great Vessels: The aortic root is normal size. The ascending aorta is mildly enlarged. The pulmonary artery is not well visualized, but is probably normal size. The IVC is dilated (diameter is greater than 2.1 cm) yet it collapses greater than 50% with a sniff. This suggests a right atrial pressure of 8 mm Hg. Pericardium/ Pleura There is no pericardial effusion. There is no pleural effusion. MMode/2D Measurements & Calculations LVIDd: 4.4 cm LVOT diam: 2.1 cm LVIDs: 2.8 cm Ao root diam: 3.0 cm FS: 35.3 % asc Aorta Diam: 3.7 cm EPSS: 0.09 cm IVSd: 0.78 cm LVPWd: 0.84 cm LV tejada. diameter/BSA (cm/m^2): 2.6 LV sys. diameter/BSA (cm/m^2): 1.7 LA A2 area: 21.9 cm2 RA long axis: 4.9 cm LA A4 area: 19.2 cm2 RA area: 16.1 cm2 LA length (vol): 5.0 cm RA vol: 45.4 ml LA vol: 70.6 ml RA : 27.2 ml/m2 LA vol index: 42.3 ml/m2 IVC diam: 2.5 cm RVD1 (basal): 3.8 cm TAPSE: 2.9 cm Doppler Measurements & Calculations Ao V2 max: 130.5 cm/sec LVOT Max Celestino: 106.5 cm/sec Ao V2 mean: 97.7 cm/sec LV V1 max P.5 mmHg Ao max P.8 mmHg LV V1 VTI: 22.7 cm Ao mean P.1 mmHg SAIGE(I,D): 2.5 cm2 Ao V2 VTI: 30.4 cm SAIGE(V,D): 2.7 cm2 sev ratio: 0.74 SAIGE indexed to BSA (cm^2/m^2): 1.5 MV E max celestino: 94.8 cm/sec TR max celestino: 262.2 cm/sec MV A max celestino: 96.0 cm/sec TR max P.5 mmHg MV E/A: 0.99 PA V2 max: 68.2 cm/sec Med Peak E' Celestino: 10.4 cm/sec PA V2 mean: 51.8 cm/sec E/E' med: 9.1 PA mean P.1 mmHg Lat Peak E' Celestino: 10.7 cm/sec PA Accel Time: 0.11 sec E/E' lat: 8.8 E/e' average: 9.0 MV dec time: 0.13 sec SV(LVOT): 76.4 ml Reading Physician:01:20 PM
--- NOTE | 2020-06-14 14:33 | CM.DANOTE ---
Discharge Planning/Care Management DCP: assessment: case received, EMR reviewed and met with pt during Team Bedside Rounds. Introduced self and role. Pt was found on her phone and stated that she had just finalized her application for [employer] ([email or web address]) insurance plan. This is now set to be in place May 18 2020 and forward. Pt is a 54 year old who admitted last evening to care of hospitalist team after being sent from clinic setting to ER. Payer: now confirmed as [facility] PCP: she is assigned to Inesas Thayer: PCP and will be following up her at d/c. Dr. Paredes explained that ECHO was planned and if ok, pt could d/c later in the day. Pt confirmed that her daughter Jacinda would be picking her up. A check in now shows that pt was ok'd for d/c and did leave for home with plan for PCP followup. CM Discharge Assessment Start: 06/14/20 14:31 Freq: Status: Discharge Protocol: Document 06/14/20 14:32 ITV (Rec: 06/14/20 14:33 ITV [id number]) Discharge Planning Assessment Advance Directives? No Prior Living Arrangements House Household Members friend(s) Document 06/14/20 14:32 ITV (Rec: 06/14/20 14:33 ITV [id number]) Discharge Planning Assessment Advance Directives? No Prior Living Arrangements House Household Members friend(s) Document 06/14/20 14:32 ITV (Rec: 06/14/20 14:33 ITV [id number]) Discharge Planning Assessment Advance Directives? No History Provided By Patient,Medical Record Prior Living Arrangements House Household Members friend(s) Independent with ADL's Yes Is patient alert and oriented? Yes Discharge Plan Home Review Status In Process
--- NOTE | 2020-06-15 11:24 | P.DS_ITS ---
History of Present Illness History of Present Illness Date Patient Seen: 06/14/20 Chief complaint: abnormal EKG Narrative: Marylou Bowles is a 54-year-old female normally healthy was going into her PCP to establish care and when they took her vitals she was found to have an elevated heart rate and was immediately referred to the emergency department. She has been told in the past that she has had an elevated heart rate and that she has a murmur. States that her heart rate has been noted to range from 126 to of 135. Her only new symptoms is that she is quite fatigued in sometimes is noted to fall asleep while talking to others. 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 She denies fevers sweats or chills, chest pain, shortness of breath, nausea vomiting, dysuria, diarrhea or constipation. In the emergency department she was given IV diltiazem 10 mg, and then started on a diltiazem drip. Patient is afebrile, blood pressure 124/83, her heart rate is now controlled at 75 per minute, but still irregular, oxygen saturation 99% on room air, she weighs 62.5 kg with a BMI of 23.6. WBC 7.1, RBC 5.53, hemoglobin 16.8, hematocrit 49.7, platelet count 298, INR is 0.9, sodium 139, potassium 3.5, chloride 101, bicarb 31, BUN 18, creatinine 0.78, GFR is greater than 60, glucose 104, calcium 9.7, magnesium 2 4, liver enzymes are within normal limits, creatinine kinase is a elevated at 173, CK-MB is 2.79, troponin x2 are negative, proBNP is 166, TSH is 0.989, and COVID-19 is negative. EKGs done in 2017 and today both indicate an incomplete right bundle branch block both indicated a possible inferior AR likely old. Discharge Providers Provider Date of admission: 06/13/20 17:27 Discharge Date: 06/14/20 Primary care physician: FELTON Hoyt Discharge provider: Selma Paredes MD Summary Hospital Course Discharge Diagnosis: 1. Paroxsymal Atrial Fibrillation Hospital Course: Patient was admitted for rapid atrial fibrillation. She was adriana neeru on a cardizem drip and spontaneously converted to sinus rhythm at midnight. She had a cardiac echo, which was normal except for mildly dilated left and right atrial enlargement. Her EF was normal and there was no wall motion abnormalities. The patients CHADS vasc score was 1 ( low risk). She was discharged home to follow up with her PCP. Patient had no additional complaints and was discharged in satisfactory condition. Status at Discharge Cognitive/behavioral status at discharge: oriented Functional status at discharge: independent ambulation Overall status at discharge: patient is back to baseline Time Spent with Patient Time spent: Less than 30 minutes Exam Vital Signs (past 8 hours): Oxygen Delivery Method Room Air Oxygen Flow Rate 0 Narrative Exam Narrative: pleasant female in no Acute distress Lungs: clear to auscultation CV: RRR nl Sl S2 Abd: Soft/ non tender/ non distended Ext: no edema Objective Labs Result Diagrams: 06/14/20 04:41 06/14/20 04:41 Discharge Assessment & Plan Assessment and Plan Assessment: Paroxsymal Atrial Fibrilltion, present on admission Now resolved Plan of Treatment: No additonal treatment indicated Discharge Plan Discharge Plan Patient Disposition: Home Discharge orders & Medications Prescriptions: No Action No Known Home Medications RF: 0 Follow up/Referrals: Inessa Choi ARNP [Primary Care Provider] - Diet/Activity/Treatments Diet: Diet as Tolerated Visit Report/Discharge Packet Instructions: Atrial Fibrillation, DI for Atrial Fibrillation Visit Report Forms: Patient Portal/API, Stroke Signs & Symptoms Discharge Data Primary Care Provider: Inessa Choi Attending Provider: Selma Paredes Admit Date/Time: 06/13/20 17:27 Discharges patient from system. Discharge Date/Time: 06/14/20 14:26
== END 2020-06-14 14:26 | disposition home or self-care (01) ==
LOC: ED 16:49 → ICU 06-14 10:10
PROVIDERS: Nurse Practitioner Family; Admitting Provider Internal Medicine; Emergency Provider Emergency Medicine; PCP Registered Nurse; Referring Provider Emergency Medicine; Visit Provider Internal Medicine
DX: R00.0 Tachycardia, unspecified (principal); I48.0 Paroxysmal atrial fibrillation; Z11.59 Encounter for screening for other viral diseases
CPT/HCPCS: 36415; 71045; 80053; 80061; 82550; 82553; 83735; 83880; 84443; 84484; 85025; 85610; 85730; 87635; 87797; 93005; 93306; 96361; 96365; 96366; 96375; 99284; G0378

== ENCOUNTER → 2022-08-25 12:51 | Outpatient (CLI) | payer OTHER, MEDICAID, SELFPAY ==
[2020-06-13 18:53] VITALS: BMI 23.6
[2022-08-25 15:24] LABS: Hemoglobin A1C% w Est Avg Glu 5.4 % (4.0-6.0)
[2022-08-25 15:53] LABS: Alanine Aminotransferase 21 IU/L (<35); Albumin 4.1 g/dL (3.5-5.0); Albumin Globulin Ratio 1.6 (1.0-2.8); Alkaline Phosphatase 56 U/L (38-126); Aspartate Aminotransferase 24 IU/L (14-36); BUN Creatinine Ratio 20.5 (6-22); Bilirubin Total 0.6 mg/dL (0.2-1.3); Blood Urea Nitrogen 18 mg/dL (7-17); Carbon Dioxide 25 mmol/L (22-32); Chloride 104 mmol/L (98-107); Cholesterol 188 mg/dL (140-199); Estimated Glomerular Filt Rate > 60 mL/min (>60); Globulin 2.5 g/dL (1.7-4.1); Glucose 88 mg/dL (70-100); HDL Cholesterol 90 mg/dL (40-60); HEMOLYSIS 26 (0-50); LDL Cholesterol Calculated 80 mg/dL (<100); Potassium 4.7 mmol/L (3.4-5.1); Sodium 138 mmol/L (137-145); Total Protein 6.6 g/dL (6.3-8.2); Triglycerides 92 mg/dL (35-150)
== END ==
PROVIDERS: PCP Family Medicine; Referring Provider Family Medicine; Visit Provider Family Medicine
DX: I10 Essential (primary) hypertension (principal)
CPT/HCPCS: 36415; 80053; 80061; 83036

== ENCOUNTER 2024-02-12 19:14 | Emergency (ER) | payer OTHER, MEDICAID, SELFPAY ==
[2020-06-13 18:53] VITALS: BMI 23.6
[2024-02-12 19:26] VITALS: BP 135/85; PULSE 70; RESP 15; TEMP 36.3; O2SAT 99; BMI 25.7
[2024-02-12 20:34] VITALS: BP 141/92; PULSE 79; RESP 16; TEMP 36.6; O2SAT 96
--- NOTE | 2024-02-12 22:04 | ED.BACK ---
HPI - Back Pain/Injury General Chief Complaint: Back Pain/Injury Stated Complaint: back pain, pulled something at work Time Seen by Provider: 02/12/24 22:02 Source: patient History of Present Illness HPI Narrative: Patient is a healthy 58-year-old female presenting today with thoracic back pain. She reports that it 1-2 days ago she moved a refrigerator at work and has had pain ever since. No numbness or tingling no change in bowel or bladder habits. She has been taking ibuprofen without significant relief. Related Data Previous Rx's Medication Instructions Recorded phenazopyridine 200 mg tablet 200 mg PO TID 6 doses #6 tabs 09/02/23 (Pyridium) lisinopril 20 mg tablet 20 mg PO DAILY #90 tabs 12/27/23 hydrocodone 5 mg-acetaminophen 325 1 tab PO Q6H PRN pain #10 tabs 02/12/24 mg tablet methocarbamol 750 mg tablet 750 mg PO Q8H PRN muscle spasm #14 02/12/24 tabs Allergies Allergy/AdvReac Type Severity Reaction Status Date / Time No Known Drug Allergies Allergy Verified 09/02/23 12:17 Patient History Medical History Benign essential HTN MRSA (methicillin resistant Staphylococcus aureus) Mucinous cystadenoma (~10/2017) Surgical History Status post hysterectomy Hx of appendectomy (1979) Status post ovarian cystectomy (09/13/17) Status post hysterectomy with oophorectomy (09/13/17) Family History Mother Acute NM Grandfather Congestive heart failure Father Leukemia Social History household members: friend(s) Smoking Status: Former smoker Tobacco: How many years used: 40 second hand exposure: No alcohol intake: current substance use type: marijuana Smoking Status: Former smoker alcohol intake frequency: 3 or more drinks per day Substance Use Type: former substance user and marijuana Exam Initial Vital Signs Initial Vital Signs: Vital Signs Temperature 97.4 F L 02/12/24 19:26 Pulse Rate 70 02/12/24 19:26 Respiratory Rate 15 02/12/24 19:26 Blood Pressure 135/85 02/12/24 19:26 Pulse Oximetry 99 02/12/24 19:26 Oxygen Delivery Method Room Air 02/12/24 19:26 GENERAL: Alert 58-year-old female appears uncomfortable and in no acute distress. HEENT: Head atraumatic,EOMI, pupils reactive, neck supple CARDIOVASCULAR: Regular rate and rhythm without murmurs, rubs or gallops. RESPIRATORY: Breath sounds equal bilaterally, no wheezes rales or rhonchi. ABDOMEN: Soft, nontender. Normoactive bowel sounds all 4 quadrants. No guarding or rebound. BACK no vertebral tenderness no step-offs tender in the thoracic area paraspinal muscles EXTREMITIES: Normal range of motion, no clubbing or edema. Neurovascularly intact NEUROLOGICAL: Alert and oriented x4. Normal gait moving all extremities SKIN: Warm, dry, no laceration, no petechiae, no rashes or lesions. Course Orders Ordered: Discontinued Medications Ketorolac Tromethamine (Ketorolac 30 Mg/Ml Vial) 30 mg IM NOW ONE Stop: 02/12/24 22:03 Last Admin: 02/12/24 22:11 Dose: 30 mg Documented By: VANESA Methocarbamol (Methocarbamol 500 Mg Tablet) 750 mg PO NOW ONE Stop: 02/12/24 22:03 Last Admin: 02/12/24 22:10 Dose: 750 mg Documented By: VANESA Vital Signs Vital signs: Vital Signs - 8 hr 02/12/24 19:26 02/12/24 20:34 02/12/24 22:17 Temperature 97.4 F L 97.9 F Pulse Rate 70 79 72 Respiratory Rate 15 16 18 Blood Pressure 135/85 141/92 H 132/76 Pulse Oximetry 99 96 100 Oxygen Delivery Method Room Air Room Air MDM - Back Pain/Injury MDM Narrative Medical decision making narrative: Patient is a healthy 58-year-old female who presents today with back pain after moving refrigerator. Pain feels like it is spasm. She has Diagonal at home but only has a couple pills left. She has been taking ibuprofen still having pain. No evidence of cauda equina syndrome is ambulatory to the restroom This seems to be musculoskeletal injury. We discussed light stretches and supportive care. Discharge Plan Departure Patient Disposition: Home Clinical Impression: Back muscle spasm Instructions: DI for Back Spasm Activity Restrictions/Additional Instructions: *You have been diagnosed with back spasm *What to do: Increase activity as tolerated, stretches heating pad *Continue to take medications as directed Diagonal 1 tablet every 6 hours if needed for severe pain 100 mg every 6 hours if needed for [id number] pain Methocarbamol 750 mg every 8 hours if needed for muscle spasm *Follow up with your primary care provider in 2-3 days or call [phone] *Return to ER if you should have increasing back pain numbness tingling weakness or any new, worsening or concerning symptoms CONTROLLED SUBSTANCE DISCHARGE (Narcotoic/benzodiazepine/Flexeril/Phenergan) 1. You have been prescribed narcotic medications, it does have acetaminophen/Tylenol/paracetamol in it, DO NOT TAKE MORE THAN 4,00mg in 24 hours of Tylenol. TRAMADOL DOES NOT CONTAIN TYLENOL 2. Please understand that we cannot provide further refills of narcotics, benzodiazepines or controlled substances through the ED and her pain management will need to be through your provider. 3. While on these medications you cannot drive or operate heavy machinery. 4. You cannot sign legal documents or perform any duties such as this. 5. As long as you're taking opiate pain medications he should also be taking a stool softener such as Colace, Dulcolax, MiraLAX or prune juice, to help avoid constipation. Prescriptions: New hydrocodone-acetaminophen 5-325 mg tablet 1 tab PO Q6H PRN (Reason: pain) Qty: 10 0RF methocarbamol 750 mg tablet 750 mg PO Q8H PRN (Reason: muscle spasm) Qty: 14 0RF No Action phenazopyridine [Pyridium] 200 mg tablet 200 mg PO TID 0 Days Qty: 6 0RF lisinopril 20 mg tablet 20 mg PO DAILY Qty: 90 0RF Referrals: Shelbie Boyce DO [Primary Care Provider] - Stand Alone Forms: Patient Portal/API
[2024-02-12] MEDS: methocarbamoL 500 MG TABLET 750 MG PO (22:10)
[2024-02-12] MEDS: KETOROLAC 30 MG/ML VIAL IM (22:11)
[2024-02-12 22:17] VITALS: BP 132/76; PULSE 72; RESP 18; O2SAT 100
== END 2024-02-12 22:25 | disposition home or self-care (01) ==
PROVIDERS: Emergency Provider Emergency Medicine; PCP Family Medicine
DX: M62.830 Muscle spasm of back (principal)
CPT/HCPCS: 96372; 99283; J1885

== ENCOUNTER → 2024-02-16 10:33 | Outpatient (CLI) | payer OTHER, MEDICAID, SELFPAY ==
[2020-06-13 18:53] VITALS: BMI 23.6
[2024-02-16 13:17] LABS: Alanine Aminotransferase 15 IU/L (<35); Albumin 4.2 g/dL (3.5-5.0); Albumin Globulin Ratio 1.7 (1.0-2.8); Alkaline Phosphatase 56 U/L (38-126); Aspartate Aminotransferase 21 IU/L (14-36); BUN Creatinine Ratio 19.3 (6-22); Bilirubin Total 0.5 mg/dL (0.2-1.3); Blood Urea Nitrogen 16 mg/dL (7-17); Calcium 9.1 mg/dL (8.4-10.2); Carbon Dioxide 28 mmol/L (22-32); Chloride 108 mmol/L (98-107); Estimated Glomerular Filt Rate > 60 mL/min (>60); Globulin 2.5 g/dL (1.7-4.1); Glucose 92 mg/dL (80-110); HEMOLYSIS < 15 (0-50); Potassium 4.2 mmol/L (3.4-5.1); Sodium 139 mmol/L (137-145); Total Protein 6.7 g/dL (6.3-8.2)
== END ==
PROVIDERS: PCP Family Medicine; Referring Provider Family Medicine; Visit Provider Family Medicine
DX: I10 Essential (primary) hypertension (principal); Z13.1 Encounter for screening for diabetes mellitus
CPT/HCPCS: 36415; 80053

== ENCOUNTER → 2024-02-28 13:47 | Outpatient (CLI) | payer OTHER, MEDICAID, SELFPAY ==
[2020-06-13 18:53] VITALS: BMI 23.6
== END ==
LOC: CAR 13:47
PROVIDERS: PCP Family Medicine; Referring Provider Family Medicine; Visit Provider Family Medicine
DX: R00.2 Palpitations (principal)
CPT/HCPCS: 93246

== ENCOUNTER → 2024-05-17 12:40 | Outpatient (CLI) | payer OTHER, MEDICAID, SELFPAY ==
[2020-06-13 18:53] VITALS: BMI 23.6
--- NOTE | 2024-05-17 12:41 | DI.RAD.S_ITS ---
PROCEDURE: XR SHOULDER RT MIN 2V INDICATIONS: Right shoulder pain TECHNIQUE: 3 views of the shoulder were acquired. COMPARISON: None. FINDINGS: Bones: No fractures or dislocations. No suspicious bony lesions. Visualized ribs appear intact. Osteoarthritic changes of the acromioclavicular joint and glenohumeral joint. Soft tissues: No suspicious soft tissue calcifications. Linear radiodensity is seen projecting in the right lower chest. IMPRESSION: 1. No acute fracture or dislocation. 2. Osteoarthritis of the acromioclavicular joint and glenohumeral joint. Dictated by: Asif Vora M.D. on 05/18/2024 at 9:06 Approved by: Asif Vora M.D. on 05/18/2024 at 9:10
== END ==
PROVIDERS: PCP Family Medicine; Referring Provider Family Medicine; Visit Provider Family Medicine
DX: S46.911A Strain of unspecified muscle, fascia and tendon at shoulder and upper arm level, right arm, initial encounter (principal); M19.011 Primary osteoarthritis, right shoulder; X58.XXXA Exposure to other specified factors, initial encounter
CPT/HCPCS: 73030

== ENCOUNTER → 2024-07-24 14:26 | Outpatient (CLI) | payer OTHER, MEDICAID, SELFPAY ==
[2020-06-13 18:53] VITALS: BMI 23.6
--- NOTE | 2024-07-24 14:27 | DI.MG.S_ITS ---
BILATERAL DIGITAL SCREENING MAMMOGRAM 3D/2D WITH CAD: 07/24/2024 CLINICAL: Routine screening. Family history of breast cancer. Default Baseline exam. Comparison is made to exams dated: 04/16/2011 [facility], 04/16/2011 mammogram, and 01/23/2008 mammogram - [facility]. The breasts are heterogeneously dense, which may obscure small masses (category c / 51-75% glandular tissue). Current study was also evaluated with a Computer Aided Detection (CAD) system. There are benign calcifications in both breasts. No significant masses, calcifications, or other findings are seen in either breast. There has been no significant interval change. IMPRESSION: BENIGN There is no mammographic evidence of malignancy. A 1 year screening mammogram is recommended. Based on the Tyrer Cuzick model (a risk assessment model) the patient's lifetime risk is 13.2% and her 10 year risk is 5.4%. According to the ACR, ACS, and NCCN guidelines, an annual breast MRI exam along with mammogram is recommended if the patient's lifetime risk is 20% or greater. This exam was interpreted at Station ID: [id number]. NOTE: For mammograms, a report in lay terms will be sent to the patient. Approximately 15% of breast malignancies will not be visualized mammographically. In the management of a palpable breast mass, a negative mammogram must not discourage biopsy of a clinically suspicious lesion. Electronically Signed By: Oliverio álvarez/samantha:07/24/2024 18:45:45 letter sent: Normal Exam ACR BI-RADS Category 2: Benign
== END ==
PROVIDERS: PCP Family Medicine; Referring Provider Family Medicine; Visit Provider Family Medicine
DX: Z12.31 Encounter for screening mammogram for malignant neoplasm of breast (principal); Z80.3 Family history of malignant neoplasm of breast; R92.333 Mammographic heterogeneous density, bilateral breasts
CPT/HCPCS: 77063; 77067

== ENCOUNTER → 2024-12-26 15:42 | Outpatient (CLI) | payer OTHER, SELFPAY ==
[2020-06-13 18:53] VITALS: BMI 23.6
--- NOTE | 2024-12-26 15:48 | DI.RAD.S_ITS ---
PROCEDURE: XR FOOT RT MIN 3V INDICATIONS: FOOT PAIN TECHNIQUE: 3 views of the foot were acquired. COMPARISON: None. FINDINGS: Bones: Tiny nondisplaced remote avulsion fracture dorsal cortex of the distal talar neck appreciated. No significant osseous abnormality. Joints: Minimal degenerative changes 2nd through 5th interphalangeal joints noted. Soft tissues: Minor calcification Achilles tendon insertion on calcaneus noted. There is mild plantar soft tissue swelling over the calcaneus IMPRESSION: Plantar s soft tissue swelling over the calcaneus- likely edema. Other minor chronic findings as described Dictated by: Tony Duncan M.D. on 12/27/2024 at 11:02 Approved by: Tony Duncan M.D. on 12/27/2024 at 11:03
== END ==
PROVIDERS: PCP Student in an Organized Health Care Education/Training Program; Referring Provider Student in an Organized Health Care Education/Training Program; Visit Provider Student in an Organized Health Care Education/Training Program
DX: M79.89 Other specified soft tissue disorders (principal); M79.671 Pain in right foot
CPT/HCPCS: 73630

== ENCOUNTER → 2025-04-30 11:13 | Outpatient (CLI) | payer SELFPAY ==
[2020-06-13 18:53] VITALS: BMI 23.6
[2025-05-07 16:46] LABS: Urine N gonorrhoeae NOT DETECTED
[2025-05-07 16:57] LABS: Urine Chlamydia NOT DETECTED
== END ==
PROVIDERS: Chiropractor; PCP Student in an Organized Health Care Education/Training Program; Visit Provider Physician Assistant
DX: R30.0 Dysuria (principal)
CPT/HCPCS: 87077; 87086; 87186; 87491; 87591